=== PATIENT | male | born 1990 | race African-American/Black ===

== ENCOUNTER 2018-01-18 09:33 | Emergency (ER) | payer SELFPAY ==
[~2018-01-18] VITALS: Ht 188 cm; Wt 118.0 kg
[2018-01-18 09:36] VITALS: BP 125/72
[2018-01-18] MEDS ORDERED: PREDNISONE 20MG TABLET PO STA (10:07)
[2018-01-18] MEDS ORDERED: IPRATROPIUM BROMIDE (0.02%) 0.5MG/2.5ML NEB HHN STA (10:07)
[2018-01-18] MEDS ORDERED: ALBUTEROL (0.083%) 2.5MG/3ML NEB HHN STA (10:07)
== END 2018-01-18 10:14 | disposition left against medical advice (07) ==
LOC: ER 09:33
DX: J20.9 Acute bronchitis, unspecified (principal); Z87.891 Personal history of nicotine dependence; Z88.8 Allergy status to other drugs, medicaments and biological substances
CPT/HCPCS: 99283

== ENCOUNTER 2020-03-23 03:10 | Emergency (ER) | payer MEDICAID ==
[~2020-03-23] VITALS: Ht 177.8 cm; Wt 96.0 kg
[2020-03-23 03:13] VITALS: BP 140/70
== END 2020-03-23 04:06 | disposition left against medical advice (07) ==
LOC: ER 03:45
DX: M25.561 Pain in right knee (principal); Z53.21 Procedure and treatment not carried out due to patient leaving prior to being seen by health care provider
CPT/HCPCS: 93005

== ENCOUNTER 2020-06-09 03:31 | Emergency (ER) | payer MEDICAID ==
[~2020-06-09] VITALS: Ht 177.8 cm; Wt 91.0 kg
[2020-06-09] MEDS ORDERED: BACITRACIN ZINC OINT UDPKT TOP ONE (04:30)
[2020-06-09] MEDS ORDERED: LIDOCAINE HCL/EPINEPHRINE 1%-EPI 1:100,000 10 ML VIAL IJ ONE (04:30)
[2020-06-09] MEDS ORDERED: TETANUS, DIPHTHERIA, PERTUSSIS VAC/PF 0.5ML (>7YR OLD) IM ONE (04:30)
[2020-06-09] MEDS ORDERED: IBUPROFEN 600MG TABLET PO ONE (04:30)
[2020-06-09] MEDS ORDERED: LIDOCAINE HCL/EPINEPHRINE 1%-EPI 1:100,000 20 ML VIAL INFIL NR (04:30)
[2020-06-09 05:21] VITALS: BP 126/74
[2020-06-09] MEDS ORDERED: AMOX-424 MT (05:29)
[2020-06-09] MEDS ORDERED: IBUP-2029 MT (05:29)
== END 2020-06-09 06:15 ==
LOC: ER 03:31
DX: S81.851A Open bite, right lower leg, initial encounter (principal); S81.852A Open bite, left lower leg, initial encounter; S41.152A Open bite of left upper arm, initial encounter; S41.151A Open bite of right upper arm, initial encounter; J45.909 Unspecified asthma, uncomplicated; Z88.8 Allergy status to other drugs, medicaments and biological substances; Y35.893A Legal intervention involving other specified means, suspect injured, initial encounter; W54.0XXA Bitten by dog, initial encounter; Y93.89 Activity, other specified; Y92.89 Other specified places as the place of occurrence of the external cause
CPT/HCPCS: 12002; 73590; 73610; 90715; 99284; J3490; Z7610